=== PATIENT | female | born 1990 | race American Indian/Alaskan Native ===

== ENCOUNTER 2018-01-26 22:07 | Emergency (ER) | payer MEDICAID, OTHER ==
--- NOTE | 2018-01-26 22:59 | EDM.PDOC ---
ED HPI GENERAL MEDICAL PROBLEM - General Chief Complaint: Chest Pain Stated Complaint: CHEST PAIN Time Seen by Provider: 01/26/18 22:31 Source of Information: Reports: Patient, RN Notes Reviewed - History of Present Illness INITIAL COMMENTS - FREE TEXT/NARRATIVE: 27-year-old female is here with palpitations. This started earlier this past evening and continues as sharp twinge type feeling of discomfort across mid chest. No shortness of breath or difficulty breathing. No nausea vomiting or other unusual symptoms. She's had this occasionally in the past but not nearly so frequent. She is normally healthy with no known history for diabetes hypertension or known heart problems. Treatments MEDICAL CLERK: Reports: Other (see below) Other Treatments MEDICAL CLERK: none Chest Pain Score (Numeric/FACES): 7 - Related Data Allergies Allergy/AdvReac Type Severity Reaction Status Date / Time No Known Allergies Allergy Verified 01/26/18 22:37 ED ROS GENERAL - Review of Systems Review Of Systems: See Below HEENT: Reports: No Symptoms Respiratory: Denies: Shortness of Breath, Pleuritic Chest Pain Cardiovascular: Reports: Palpitations GI/Abdominal: Denies: Abdominal Pain, Nausea, Vomiting Musculoskeletal: Reports: No Symptoms Skin: Reports: No Symptoms Neurological: Reports: No Symptoms ED EXAM, GENERAL - Physical Exam Exam: See Below General Appearance: Alert, No Apparent Distress Eye Exam: Bilateral Eye: PERRL Throat/Mouth: Normal Inspection Head: Atraumatic. No: Facial Swelling Neck: Supple, Full Range of Motion Respiratory/Chest: No Respiratory Distress, Lungs Clear, Normal Breath Sounds Cardiovascular: Normal Peripheral Pulses, Regular Rate, Rhythm GI/Abdominal: Soft, Non-Tender Extremities: Normal Inspection. No: Pedal Edema, Leg Pain Neurological: Alert, Oriented, No Motor/Sensory Deficits Skin Exam: Warm, Dry, Normal Color Course - Vital Signs Last Recorded V/S: Last Vital Signs Temp 98.0 F 01/26/18 22:21 Pulse 79 01/26/18 22:21 Resp 16 01/26/18 22:21 BP 128/86 01/26/18 22:21 Pulse Ox 99 01/26/18 22:21 - Orders/Labs/Meds Orders: Active Orders 24 hr Category Date Time Status EKG Documentation Completion [RC] URGENT Care 01/26/18 22:15 Active - Re-Assessments/Exams Free Text/Narrative Re-Assessment/Exam: 01/27/18 15:23 palliative nurse initially was sinus rhythm no ectopy and then after a short Time I did see occasional PVCs that correlate with the symptoms she is having. Discussed with patient that these are benign, further workup not indicated this evening. Discharge instructions as documented. Departure - Departure Time of Disposition: 22:56 Disposition: Home, Self-Care 01 Condition: Fair Clinical Impression: PVCs (premature ventricular contractions), Second trimester Instructions: Premature Ventricular Contraction, Second Trimester of , [id number] Referrals: Isela Comer MD [Primary Care Provider] - Forms: ED Department Discharge Additional Instructions: rest, drink plenty of water to maintain hydration, follow up clinic tomorrow for recheck. The PVC's you are having are annoying but are not a danger to you at this time. Your EKG, heart and lung exam is normal. See your health provider tomorrow for follow up. Try avoid caffiene if you are not already doing that. Return to ED as needed. - My Orders Last 24 Hours: My Active Orders 01/26/18 22:15 EKG Documentation Completion [RC] URGENT - Assessment/Plan Last 24 Hours: My Active Orders 01/26/18 22:15 EKG Documentation Completion [RC] URGENT
== END 2018-01-26 23:31 | disposition home or self-care (01) ==
LOC: JD.ED 22:07
DX: O99.412 Diseases of the circulatory system complicating pregnancy, second trimester (principal); I49.3 Ventricular premature depolarization
CPT/HCPCS: 93005; 93010; 99284-25; 99285-25